=== PATIENT | female | born 1985 ===

== ENCOUNTER 2016-11-16 18:12 | Emergency (ER) | payer OTHER ==
[2016-11-16 18:12] VITALS: BMI 24.7
[2016-11-16 18:30] VITALS: BP 129/80; TEMP 98.4; O2SAT 100
--- NOTE | 2016-11-16 20:07 | C.PDOC ---
History Of Present Illness Patient presents to the ER with a complaint of abdominal pain. Patient states she ran out of pain medication and must wait until Friday for her pain management appointment. Does not want any blood work done. Denies any nausea, vomiting, or fever. Time Seen by Provider: 11/16/16 19:43 Chief Complaint (Nursing): Abdominal Pain History Per: Patient History/Exam Limitations: no limitations Onset/Duration Of Symptoms: Hrs Current Symptoms Are (Timing): Still Present Location Of Pain/Discomfort: Epigastric (Mid) Associated Symptoms: denies: Fever, Chills, Nausea, Vomiting Past Medical History Reviewed: Historical Data, Nursing Documentation, Vital Signs Vital Signs: Last Vital Signs Temp 98.4 F 11/16/16 18:21 Pulse 101 H 11/16/16 18:21 Resp 20 11/16/16 18:21 BP 129/80 11/16/16 18:21 Pulse Ox 100 11/16/16 20:21 - Medical History PMH: Anemia, Asthma, Bipolar Disorder, Crohn's Disease, Depression, Gastrointestinal Ulcer (peptic & gastric), Migraine (abdominal), Chronic Pain ( Abdominal) Surgical History: Endoscopy - [facility] Procedures ANESTH INJECT SYMP NERVE (11/29/13) CLOSED ENDOSCOPIC BIOPSY OF LARGE INTESTINE (02/11/13) EXCISION OF DUODENUM, ENDO, DIAGN (06/28/16) EXCISION OF ILEOCECAL VALVE, ENDO, DIAGN (06/28/16) EXCISION OF JEJUNUM, ENDO, DIAGN (06/28/16) EXCISION OF SMALL INTESTINE, ENDO, DIAGN (06/28/16) INJECT STEROID (11/29/13) INJECT/INFUSE NEC (04/23/15) LAPAROSCOP LYSIS-PERITONEAL ADHES (03/01/13) NONEXCIS DEBRID OF WOUND, INFECT, OR BURN (10/07/13) SYMPATH NERVE INJECT NEC (11/29/13) Family History: States: No Known Family Hx, Diabetes - Social History Hx Alcohol Use: No Hx Substance Use: No - Immunization History Hx Tetanus Toxoid Vaccination: Yes Hx Influenza Vaccination: Yes Hx Pneumococcal Vaccination: Yes Review Of Systems Constitutional: Negative for: Fever, Chills Cardiovascular: Negative for: Chest Pain Respiratory: Negative for: Shortness of Breath Gastrointestinal: Positive for: Abdominal Pain (Mid epigastric). Negative for: Nausea, Vomiting Physical Exam - Physical Exam Appears: Well, Non-toxic Skin: Warm, Dry Oral Mucosa: Moist Chest: Symmetrical Cardiovascular: Rhythm Regular Respiratory: No Rales, No Rhonchi, No Wheezing Gastrointestinal/Abdominal: Soft, Tenderness (minimal, mid epigastric) Neurological/Psych: Oriented x3, Normal Speech, Normal Cognition ED Course And Treatment O2 Sat by Pulse Oximetry: 100 Progress Note: Ultram PO administered. Medical Decision Making Medical Decision Making: Upon provider reevaluation patient is feeling better, is medically stable, and requires no further treatment in the ED at this time. Patient will be discharged home with Rx for tramadol . Counseling was provided and all questions were answered regarding diagnosis and need for follow up with the referred clinic. There is agreement to discharge plan. Return if symptoms persist or worsen. Disposition Counseled Patient/Family Regarding: Studies Performed, Diagnosis, Need For Followup, Rx Given - Disposition Referrals: Joseph Key MD [Medical Doctor] - Disposition: HOME/ ROUTINE Disposition Time: 20:07 Condition: FAIR Prescriptions: traMADol [Ultram] 50 mg PO QID PRN #10 tab PRN Reason: Pain, Moderate (4-7) Instructions: Abdominal Pain (ED), Chronic Pain (DC) - Clinical Impression Clinical Impression: Abdominal pain, Chronic pain
[2016-11-16 21:05] VITALS: PULSE 63; RESP 18
== END 2016-11-16 21:03 | disposition home or self-care (01) ==
LOC: C.ER 18:12
DX: G89.29 Other chronic pain (principal); R10.13 Epigastric pain

== ENCOUNTER 2017-03-14 12:40 | Emergency (ER) | payer OTHER ==
[2017-03-14 12:41] VITALS: BMI 21.6
[2017-03-14 12:58] VITALS: RESP 18
[2017-03-14] MEDS ORDERED: Sodium Chloride 0.9% 1,000 ML IV ONE (13:44)
--- NOTE | 2017-03-14 13:50 | C.PDOC ---
History Of Present Illness <Corey Atkinson - Last Filed: 03/14/17 13:47> <Severino Rosenberg - Last Filed: 03/14/17 18:50> 31 y/o female presents to the ED for evaluation of vague abdominal pain. Pt has many prior evaluations here for similar complaints. Pt was also seen at [facility] on 03/11/17-03/13/17 for similar symptoms with normal work up. Pt is on lengthy narcotic, and bipolar regimen, and has been referred to chronic pain specialist. Otherwise, denies any n/v/d, urinary symptoms, or fever. (Severino Rosenberg) <Corey Atkinson - Last Filed: 03/14/17 13:47> History Per: Patient History/Exam Limitations: no limitations Onset/Duration Of Symptoms: Days Current Symptoms Are (Timing): Still Present Location Of Pain/Discomfort: Diffuse Radiation Of Pain To:: None Quality Of Discomfort: "Pain" Associated Symptoms: denies: Fever, Chills, Nausea, Vomiting, Diarrhea, Loss Of Appetite, Back Pain, Chest Pain, Constipation, Urinary Symptoms Exacerbating Factors: None Alleviating Factors: None Recent travel outside of the [place]: No Additional History Per: Patient Abnormal Vaginal Bleeding: No <Severino Rosenberg - Last Filed: 03/14/17 18:50> Time Seen by Provider: 03/14/17 13:33 Chief Complaint (Nursing): Abdominal Pain Past Medical History - Medical History PMH: Anemia, Asthma, Bipolar Disorder, Crohn's Disease, Depression, Gastrointestinal Ulcer (peptic & gastric), Migraine (abdominal), Chronic Pain ( Abdominal) Denies: Chronic Kidney Disease Surgical History: Endoscopy Family History: States: Diabetes - Social History Hx Alcohol Use: No Hx Substance Use: No - Immunization History Hx Tetanus Toxoid Vaccination: Yes Hx Influenza Vaccination: Yes Hx Pneumococcal Vaccination: Yes <Corey Atkinson - Last Filed: 03/14/17 13:47> Reviewed: Historical Data, Nursing Documentation, Vital Signs Family History: States: Diabetes <Severino Rosenberg - Last Filed: 03/14/17 18:50> Vital Signs: Last Vital Signs Temp 98.2 F 03/14/17 15:30 Pulse 88 03/14/17 15:30 Resp 18 03/14/17 15:30 BP 118/78 03/14/17 15:30 Pulse Ox 99 03/14/17 15:30 - [facility] Procedures ANESTH INJECT SYMP NERVE (11/29/13) CLOSED ENDOSCOPIC BIOPSY OF LARGE INTESTINE (02/11/13) EXCISION OF DUODENUM, ENDO, DIAGN (06/28/16) EXCISION OF ILEOCECAL VALVE, ENDO, DIAGN (06/28/16) EXCISION OF JEJUNUM, ENDO, DIAGN (06/28/16) EXCISION OF SMALL INTESTINE, ENDO, DIAGN (06/28/16) INJECT STEROID (11/29/13) INJECT/INFUSE NEC (04/23/15) LAPAROSCOP LYSIS-PERITONEAL ADHES (03/01/13) NONEXCIS DEBRID OF WOUND, INFECT, OR BURN (10/07/13) SYMPATH NERVE INJECT NEC (11/29/13) Review Of Systems Except As Marked, All Systems Reviewed And Found Negative. Constitutional: Negative for: Fever, Chills Gastrointestinal: Positive for: Abdominal Pain. Negative for: Nausea, Vomiting , Diarrhea Genitourinary: Negative for: Dysuria, Frequency, Hematuria Musculoskeletal: Negative for: Back Pain <Severino Rosenberg - Last Filed: 03/14/17 18:50> Physical Exam - Physical Exam Appears: Non-toxic, No Acute Distress Skin: Normal Color, Warm, Dry Head: Atraumatic, Normacephalic Eye(s): bilateral: Other (dilated pupils) Neck: Supple Chest: Symmetrical Cardiovascular: Rhythm Regular, No Murmur Respiratory: Normal Breath Sounds, No Rales, No Rhonchi, No Wheezing Gastrointestinal/Abdominal: Soft, No Tenderness, No Guarding, No Rebound, Other (thin, flat abdomen) Extremity: Bilateral: Atraumatic Neurological/Psych: Oriented x3, Normal Speech, Normal Cognition <Severino Rosenberg - Last Filed: 03/14/17 18:50> ED Course And Treatment O2 Sat by Pulse Oximetry: 100 <Corey Atkinson - Last Filed: 03/14/17 13:47> - Laboratory Results Result Diagrams: 03/14/17 14:16 03/14/17 14:16 Lab Interpretation: Normal (tox neg.) Urine POC: Negative Pulse Ox Interpretation: Normal - Radiology CXR: Interpreted by [facility] CXR Interpretation: Yes: No Acute Disease - Other Rad abd x 2 X-Ray: Interpreted by Me (+FOS) Progress Note: Blood work, urinalysis, obstructive series x-ray ordered and reviewed. Pt was given Toradol, and IV fluids. Reevaluation Time: 15:09 Reassessment Condition: Improved <Severino Rosenberg - Last Filed: 03/14/17 18:50> Medical Decision Making <Corey Atkinson - Last Filed: 03/14/17 13:47> <Severino Rosenberg - Last Filed: 03/14/17 18:50> Medical Decision Making: chronic constipation and NOT acute CHron's flair as no diarrhea nor leukocytosis - prob related to extensive chronic narcotics regimen (Severino Rosenberg) Disposition <Corey Atkinson - Last Filed: 03/14/17 13:47> Doctor Will See Patient In The: Office Counseled Patient/Family Regarding: Studies Performed, Diagnosis - Disposition Disposition Time: 15:10 <Severino Rosenberg - Last Filed: 03/14/17 18:50> - Disposition Referrals: Radha Powell MD [Medical Doctor] - Disposition: HOME/ ROUTINE Condition: GOOD Additional Instructions: drink a bottle of Mag Citrate (laxative) now and re-evaluate your abdominal discomfort after using the bathroom 2-3 times Continue Colace 100 mg (stool softner) twice a day any time you are taking narcotic pain relievers for your chronic pain issues Unless you have severe diarrhea, your abdominal pain may be related to constipation, and better treated with laxatives and stool softners better than narcotics. Follow-up with your PMD as needed. Prescriptions: Docusate [Colace] 100 mg PO BID #60 cap Magnesium Citrate [[facility] Magnesium Citrate] 300 ml PO ONCE PRN #1 bottle PRN Reason: Constipation Instructions: Constipation (ED) Forms: [facility] (Guatemalan) - Clinical Impression Clinical Impression: Abdominal cramps <Corey Atkinson - Last Filed: 03/14/17 13:47> - Scribe Statement The provider has reviewed the documentation as recorded by the Scribe <Severino Rosenberg - Last Filed: 03/14/17 18:50> - Scribe Statement Whitney De La Rosa All medical record entries made by the Scribe were at my direction and personally dictated by me. I have reviewed the chart and agree that the record accurately reflects my personal performance of the history, physical exam, medical decision making, and the department course for this patient. I have also personally directed, reviewed, and agree with the discharge instructions and disposition. (Severino Rosenberg)
[2017-03-14] MEDS ORDERED: Sodium Chloride 0.9% 1,000 ML ONE (13:51)
[2017-03-14 14:22] LABS: BASO # 0.2 K/uL (0.0-0.2); BASO % 2.2 % (0.0-2.0); EOS # 0.3 K/uL (0.0-0.7); HEMATOCRIT 33.7 % (34.0-47.0); LYMPH # 3.9 K/uL (1.0-4.3); LYMPH % 37.7 % (20.0-40.0); MEAN CELL VOLUME 80.2 fL (81.0-99.0); MEAN CORPUSCULAR HEMOGLOBIN 24.8 pg (27.0-31.0); MEAN PLATELET VOLUME 7.1 fL (7.2-11.7); MONO # 0.7 K/uL (0.0-0.8); MONO % 6.9 % (0.0-10.0); NRBC % 0.1 % (0.0-2.0); WHITE BLOOD COUNT 10.3 K/uL (4.8-10.8)
[2017-03-14 14:29] LABS: CHLORIDE 101 mmol/L (98-107)
[2017-03-14 14:30] LABS: POTASSIUM 4.1 mmol/L (3.6-5.2); SODIUM 140 mmol/L (132-148)
[2017-03-14 14:32] LABS: ALB/GLOB RATIO 1.5 (1.0-2.1); AST/SGOT 15 U/L (14-36); BILIRUBIN,TOTAL 0.4 mg/dL (0.2-1.3); CARBON DIOXIDE 22 mmol/L (22-30); GFR AFRICAN-AMERICAN > 60; RBC URINE 1 /hpf (0-3); TOTAL PROTEIN 6.8 g/dL (6.3-8.3); URINE BACTERIA RARE (<OCC); URINE BILIRUBIN NEGATIVE (NEGATIVE); URINE BLOOD NEGATIVE (NEGATIVE); URINE COLOR Yellow (YELLOW); URINE GLUCOSE (UA) NORMAL (Normal); URINE KETONE NEGATIVE (NEGATIVE); URINE LEUKOCYTE ESTERASE NEG Leu/uL (Negative); URINE PROTEIN NEGATIVE (NEGATIVE); URINE UROBILINOGEN NORMAL mg/dL (0.2-1.0); WBC URINE < 1 /hpf (0-5)
[2017-03-14 14:33] LABS: ALKALINE PHOSPHATASE 116 U/L (38-126); ALT/SGPT 25 U/L (9-52); BLOOD UREA NITROGEN 8 mg/dL (7-17); CALCIUM 8.4 mg/dl (8.6-10.4); GLUCOSE,RANDOM 77 mg/dL (65-105)
[2017-03-14 14:34] LABS: ALCOHOL SERUM < 10 mg/dl (0-10)
--- NOTE | 2017-03-14 14:54 | RAD ---
PROCEDURE: Radiographs of the chest and abdomen (obstructive series) HISTORY: abd pain COMPARISON: None available. FINDINGS: CHEST: The cardiomediastinal silhouette appears within normal limits of size. No focal consolidation, significant pleural effusion, or definite pneumothorax identified.Please note that chest x-ray has limited sensitivity for the detection of pulmonary masses. ABDOMEN AND PELVIS: Nonobstructive bowel gas pattern. Mild to moderate constipation. No definite free air. No acute osseous abnormality is detected. IMPRESSION: Mild moderate constipation. Otherwise unremarkable study as above.
[2017-03-14 15:31] VITALS: BP 118/78; PULSE 88; TEMP 98.2; O2SAT 99
== END 2017-03-14 15:31 | disposition home or self-care (01) ==
LOC: C.ER 12:40
DX: R10.9 Unspecified abdominal pain (principal)
CPT/HCPCS: 74022; 80053; 80320; 80324; 80345; 80346; 80349; 80353; 80358; 80361; 81001; 83690; 83992; 84703; 85025; 96361; 96374; 99285; J1885; J7040

== ENCOUNTER 2017-03-26 06:45 | Day surgery (SDC) | payer OTHER ==
[2017-03-26 07:49] VITALS: BMI 21.9
== END 2017-03-26 09:00 | disposition home or self-care (01) ==
LOC: C.ENDO 06:45
PROVIDERS: ATTEND Internal Medicine Gastroenterology
DX: K50.90 Crohn's disease, unspecified, without complications (principal); Z53.09 Procedure and treatment not carried out because of other contraindication

== ENCOUNTER 2017-04-30 07:19 | Day surgery (SDC) | payer OTHER ==
[2017-04-30] MEDS ORDERED: Lactated Ringer's 1,000 ML IV ONE (09:05)
[2017-04-30] MEDS ORDERED: Propofol 10 mg/ml Inj (20 ML) ONE (09:09)
--- NOTE | 2017-04-30 09:12 | CP.SDSHP ---
Same Day Surgery H & P - History Proposed Procedure: colonoscopy Pre-Op Diagnosis: crohn's disease - Allergies Allergies: Allergies acetaminophen [From Percocet] Allergy (Verified 04/18/17 06:59) SWELLING As per patient, states she is not allergic to acetominophen Allergic to oxycodone Gadolinium-Containing Contrast Medi Allergy (Verified 04/18/17 06:59) URTICARIA Iodine and Iodide Containing Produc Allergy (Verified 04/18/17 06:59) RASH Latex, Natural Rubber Allergy (Verified 04/18/17 06:59) RASH morphine Allergy (Verified 04/18/17 06:59) RASH morphine IV, redness with hives around site when given oxycodone HCl [From Percocet] Allergy (Verified 04/18/17 06:59) SWELLING shellfish derived Allergy (Verified 04/18/17 06:59) RASH shrimp Allergy (Verified 04/18/17 06:59) RASH doxycycline Adverse Reaction (Verified 04/18/17 06:59) extreme abdominal pain, cramps metronidazole [From Flagyl] Adverse Reaction (Verified 04/18/17 06:59) abdominal pain, cramps CONTRAST Allergy (Severe, Uncoded 04/30/17 07:50) URTICARIA HIVES SHRIMPS Allergy (Severe, Uncoded 04/30/17 07:52) RASH LATEX Allergy (Intermediate, Uncoded 04/30/17 07:51) RASH - Physical Exam General Appearance: NAD Vital Signs: Vital Signs 04/30/17 08:00 Temperature 97.8 F Pulse Rate 89 Respiratory 20 Rate O2 Sat by Pulse 100 Oximetry Mental Status: Alert & Oriented x3 Neuro: WNL Heart: WNL Lungs: WNL GI: WNL - {Optional Preform as Required} Abdomen: WNL - Impression Pt. Evaluated Today:Candidate for Anesthesia & Procedure: Yes - Date & Time Date: 04/30/17 Time: 09:12 Short Stay Discharge - Short Stay Discharge Admitting Diagnosis/Reason for Visit: CROHN'S DISEASE Disposition: HOME/ ROUTINE
[2017-04-30 09:45] VITALS: TEMP 97.3
[2017-04-30 10:07] VITALS: O2SAT 100
[2017-04-30 10:47] VITALS: BP 115/81; PULSE 85; RESP 15
== END 2017-04-30 10:44 | disposition home or self-care (01) ==
LOC: C.ENDO 07:19
PROVIDERS: ATTEND Internal Medicine Gastroenterology
DX: K50.90 Crohn's disease, unspecified, without complications (principal); K64.0 First degree hemorrhoids; K64.8 Other hemorrhoids
CPT/HCPCS: 45380; 84703; 88305; J2704; J7120

== ENCOUNTER 2018-05-28 08:20 | Day surgery (SDC) | payer OTHER ==
[2018-05-27 14:20] VITALS: BMI 20.9
[2018-05-28] MEDS ORDERED: Midazolam 2 MG/2 ML VIAL ONE (12:38)
[2018-05-28] MEDS ORDERED: Lidocaine Hydrochloride 5 ML INJ ONE (12:39)
[2018-05-28] MEDS ORDERED: Propofol 10 mg/ml Inj (20 ML) ONE ×2 (12:39→12:53)
[2018-05-28 12:47] VITALS: O2SAT 100
[2018-05-28 13:30] VITALS: TEMP 96.9
[2018-05-28 14:08] VITALS: BP 103/66; PULSE 88; RESP 14
== END 2018-05-28 14:00 | disposition home or self-care (01) ==
LOC: C.ENDO 08:20
PROVIDERS: ATTEND Internal Medicine Gastroenterology
DX: K29.50 Unspecified chronic gastritis without bleeding (principal); K25.3 Acute gastric ulcer without hemorrhage or perforation; K25.7 Chronic gastric ulcer without hemorrhage or perforation; K50.90 Crohn's disease, unspecified, without complications; K83.09 Other cholangitis; G43.D0 Abdominal migraine, not intractable; F41.9 Anxiety disorder, unspecified; Z79.52 Long term (current) use of systemic steroids; Z79.899 Other long term (current) drug therapy; F32.9 Major depressive disorder, single episode, unspecified; Z91.041 Radiographic dye allergy status; Z91.040 Latex allergy status; Z88.5 Allergy status to narcotic agent; Z91.013 Allergy to seafood; Z98.890 Other specified postprocedural states

== ENCOUNTER 2018-08-27 07:19 | Day surgery (SDC) | payer OTHER ==
[2018-08-26 15:00] VITALS: BMI 21.9
[2018-08-27] MEDS ORDERED: Lactated Ringer's 1,000 ML IV ONE (08:55)
[2018-08-27] MEDS ORDERED: Propofol 10 mg/ml Inj (20 ML) ONE (09:02)
[2018-08-27] MEDS ORDERED: Midazolam 2 MG/2 ML VIAL ONE (09:02)
[2018-08-27 09:48] VITALS: TEMP 98.7; O2SAT 99
[2018-08-27 09:50] VITALS: RESP 18
[2018-08-27 10:08] VITALS: BP 113/63
[2018-08-27 10:39] VITALS: PULSE 97
== END 2018-08-27 10:30 | disposition home or self-care (01) ==
LOC: C.ENDO 07:19
PROVIDERS: ATTEND Internal Medicine Gastroenterology
DX: K25.9 Gastric ulcer, unspecified as acute or chronic, without hemorrhage or perforation (principal); K44.9 Diaphragmatic hernia without obstruction or gangrene
CPT/HCPCS: 43239; 84703; 88305; 88342; J2001; J2250; J2704; J3010; J7120